=== PATIENT | male | born 1935 | race Caucasian/White ===

== ENCOUNTER 2017-11-21 14:13 | Day surgery (SDC) | payer MEDICARE ==
[2017-11-16 09:07] LABS: BASOPHILS % (AUTO) 0.6 % (0-1); EOSINOPHILS # (AUTO) 0.2 X10'3 (0-0.9); EOSINOPHILS % (AUTO) 2.9 % (0-6); HEMATOCRIT 42.1 % (42.0-52.0); HEMOGLOBIN 14.6 g/dl (14.0-17.9); LYMPHOCYTES # (AUTO) 2.1 X10'3 (1.1-4.8); LYMPHOCYTES % (AUTO) 33.2 % (21-51); MEAN CORPUSCULAR HEMOGLOBIN 29.6 PG (27.0-31.0); MEAN CORPUSCULAR HGB CONC 34.7 % (33.0-36.5); MEAN CORPUSCULAR VOLUME 85.4 FL (78-98); MEAN PLATELET VOLUME 9.7 FL (7.4-10.4); MONOCYTES # (AUTO) 0.4 X10'3 (0-0.9); MONOCYTES % (AUTO) 6.2 % (2-12); NEUTROPHILS # (AUTO) 3.6 X10'3 (1.8-7.7); NEUTROPHILS % (AUTO) 57.1 % (42-75); PLATELET COUNT 182 X10'3 (140-440); RED BLOOD COUNT 4.93 X10'6 (4.70-6.10); RED CELL DISTRIBUTION WIDTH 13.4 % (11.5-14.5); WHITE BLOOD COUNT 6.4 X10'3 (4.5-11.0)
[2017-11-16 09:17] LABS: ALBUMIN 3.6 G/DL (3.4-5.0); ANION GAP 9 (8-16); BLOOD UREA NITROGEN 13 MG/DL (7-18); BUN/CREATININE RATIO 16.3 (5.4-32.0); CALCIUM 8.2 MG/DL (8.5-10.1); CHLORIDE 104 MMOL/L (99-107); GLUCOSE 105 MG/DL (70-104); PARTIAL THROMBOPLASTIN TIME 27 SECONDS (22-32); POTASSIUM 4.1 MMOL/L (3.5-5.1); PROTHROMBIN TIME 10.4 SECONDS (9.0-12.0); SODIUM 139 MMOL/L (135-145); TOTAL CARBON DIOXIDE 25.9 MMOL/L (24-32); eGFR > 90 ML/MIN
[~2017-11-21] VITALS: Ht 182.9 cm; Wt 86.1 kg
[2017-11-21] VITALS (9 sets, daily range): BP systolic 119–153; BP diastolic 64–85
[~2017-11-21 14:13] MED LIST: ACET-3068 PO; LEVO100T PO; SIMV40TA4 PO; VERA240T PO
[2017-11-21] MEDS ORDERED: LORazepam 0.5 MG tablet PO PRN (14:30)
[2017-11-21] MEDS ORDERED: normal saline 1000ml 1,000 ML IV SCH (14:30)
[2017-11-21] MEDS ORDERED: diphenhydrAMINE 25mg capsule PO PRN (14:30)
[2017-11-21] MEDS ORDERED: iohexol 350MG/ML 100ml bottle IV ONE (18:11)
[2017-11-21] MEDS ORDERED: LIDOcaine 1% 30ml preserv. free vial ONE (18:11)
[2017-11-21] MEDS ORDERED: midazolam 2 mg/2 ml injection ONE (18:22)
[2017-11-21] MEDS ORDERED: fentaNYL/PF 50MCG/1 ML 2ML syringe ONE (18:22)
== END 2017-11-21 21:42 | disposition home or self-care (01) ==
LOC: SSTAY O 14:13
PROVIDERS: ATTEND Internal Medicine Interventional Cardiology
DX: I25.110 Atherosclerotic heart disease of native coronary artery with unstable angina pectoris (principal); I10 Essential (primary) hypertension; E78.5 Hyperlipidemia, unspecified; I35.0 Nonrheumatic aortic (valve) stenosis; I34.0 Nonrheumatic mitral (valve) insufficiency; I47.9 Paroxysmal tachycardia, unspecified; I48.91 Unspecified atrial fibrillation; J44.9 Chronic obstructive pulmonary disease, unspecified; E03.9 Hypothyroidism, unspecified; Z72.89 Other problems related to lifestyle; Z85.828 Personal history of other malignant neoplasm of skin; Z87.891 Personal history of nicotine dependence; Z79.82 Long term (current) use of aspirin; Z79.891 Long term (current) use of opiate analgesic; Z96.651 Presence of right artificial knee joint; Z98.890 Other specified postprocedural states; Z79.899 Other long term (current) drug therapy
CPT/HCPCS: 36415; 80048; 85025; 85610; 85730; 93005; 93458; 99152; A6257; C1769; J1644; J2250; J3010; J3490; J7030; Q0163; Q9967; 99153; A4620

== ENCOUNTER 2018-01-03 10:16 | Emergency (ER) | payer MEDICARE, OTHER ==
[~2018-01-03] VITALS: Ht 180.3 cm; Wt 88.0 kg
[~2018-01-03 10:16] MED LIST changes: -VERA240T PO
[2018-01-03 10:39] LABS: BASOPHILS # (AUTO) 0.1 X10'3 (0-0.2); BASOPHILS % (AUTO) 0.8 % (0-1); EOSINOPHILS # (AUTO) 0.2 X10'3 (0-0.9); EOSINOPHILS % (AUTO) 3.3 % (0-6); HEMATOCRIT 43.2 % (42.0-52.0); HEMOGLOBIN 14.9 g/dl (14.0-17.9); LYMPHOCYTES # (AUTO) 2.8 X10'3 (1.1-4.8); LYMPHOCYTES % (AUTO) 38.2 % (21-51); MEAN CORPUSCULAR HEMOGLOBIN 29.7 PG (27.0-31.0); MEAN CORPUSCULAR HGB CONC 34.4 % (33.0-36.5); MEAN CORPUSCULAR VOLUME 86.3 FL (78-98); MEAN PLATELET VOLUME 10.1 FL (7.4-10.4); MONOCYTES # (AUTO) 0.5 X10'3 (0-0.9); MONOCYTES % (AUTO) 6.4 % (2-12); NEUTROPHILS # (AUTO) 3.7 X10'3 (1.8-7.7); NEUTROPHILS % (AUTO) 51.3 % (42-75); PLATELET COUNT 195 X10'3 (140-440); RED BLOOD COUNT 5.01 X10'6 (4.70-6.10); RED CELL DISTRIBUTION WIDTH 13.7 % (11.5-14.5); WHITE BLOOD COUNT 7.2 X10'3 (4.5-11.0)
[2018-01-03 10:49] LABS: PARTIAL THROMBOPLASTIN TIME 26 SECONDS (22-32); PROTHROMBIN TIME 10.3 SECONDS (9.0-12.0)
[2018-01-03 10:54] LABS: ALANINE AMINOTRANSFERASE 28 U/L (12-78); ALBUMIN 3.7 G/DL (3.4-5.0); ALBUMIN/GLOBULIN RATIO 0.9 (1.1-1.5); ALKALINE PHOSPHATASE 63 IU/L (46-116); ANION GAP 8 (8-16); ASPARTATE AMINO TRANSFERASE 18 U/L (10-37); BILIRUBIN,TOTAL 0.4 MG/DL (0.1-1.0); BLOOD UREA NITROGEN 16 MG/DL (7-18); BUN/CREATININE RATIO 17.2 (5.4-32.0); CALCIUM 8.5 MG/DL (8.5-10.1); CHLORIDE 104 MMOL/L (99-107); CREATININE 0.93 MG/DL (0.60-1.10); GLUCOSE 103 MG/DL (70-104); POTASSIUM 4.1 MMOL/L (3.5-5.1); SODIUM 137 MMOL/L (135-145); TOTAL CARBON DIOXIDE 25.3 MMOL/L (24-32); TOTAL PROTEIN 7.8 G/DL (6.4-8.2); eGFR 77 ML/MIN
[2018-01-03 13:24] VITALS: BP 129/88
== END 2018-01-03 13:26 | disposition home or self-care (01) ==
LOC: ER 10:16
DX: R07.89 Other chest pain (principal); I48.91 Unspecified atrial fibrillation; J44.9 Chronic obstructive pulmonary disease, unspecified; G89.29 Other chronic pain; Z79.899 Other long term (current) drug therapy
CPT/HCPCS: 36415; 71045; 80053; 84484; 85025; 85610; 85730; 93005; 99285

== ENCOUNTER 2019-02-25 05:46 | Inpatient (IN) | payer OTHER ==
[2019-02-21 15:37] LABS: BASOPHILS # (AUTO) 0.1 X10'3 (0-0.2); BASOPHILS % (AUTO) 1.1 % (0-1); EOSINOPHILS # (AUTO) 0.2 X10'3 (0-0.9); EOSINOPHILS % (AUTO) 1.8 % (0-6); LYMPHOCYTES % (AUTO) 35.1 % (21-51); MEAN CORPUSCULAR HEMOGLOBIN 29.4 PG (27.0-31.0); MEAN CORPUSCULAR HGB CONC 33.8 g/dL (33.0-36.5); MEAN CORPUSCULAR VOLUME 87.1 FL (78-98); MEAN PLATELET VOLUME 9.3 FL (7.4-10.4); MONOCYTES # (AUTO) 0.6 X10'3 (0-0.9); MONOCYTES % (AUTO) 6.5 % (2-12); NEUTROPHILS # (AUTO) 4.8 X10'3 (1.8-7.7); NEUTROPHILS % (AUTO) 55.5 % (42-75); PRE OP HEMOGLOBIN 15.9 g/dL (14.0-17.9); PRE OP PLATELET COUNT 203 X10'3 (140-440); RED BLOOD COUNT 5.39 X10'6 (4.70-6.10); RED CELL DISTRIBUTION WIDTH 14.8 % (11.5-14.5)
[2019-02-21 15:40] LABS: CLARITY,URINE CLEAR (Clear); COLOR,URINE YELLOW (Yellow); GLUCOSE, URINE NEGATIVE (Neg); KETONES,URINE NEGATIVE (Neg); LEUKOCYTE ESTERASE ,URINE NEGATIVE (Neg); NITRITES, URINE NEGATIVE (Neg); OCCULT BLOOD,URINE NEGATIVE (Neg); PROTEIN,URINE NEGATIVE (Neg); UROBILINOGEN,URINE 0.2 E.U/dL (0.2-1.0)
[2019-02-21 15:45] LABS: UA COLLECTION TYPE CLN CATCH MIDSTREAM
[2019-02-21 16:06] LABS: ALBUMIN 3.9 G/DL (3.4-5.0); ALBUMIN/GLOBULIN RATIO 0.9 (1.1-1.5); ALKALINE PHOSPHATASE 58 IU/L (46-116); BLOOD UREA NITROGEN 17 MG/DL (7-18); BUN/CREATININE RATIO 15.9 (5.4-32.0); CALCIUM 8.5 MG/DL (8.5-10.1); CHLORIDE 107 MMOL/L (99-107); CREATININE 1.07 MG/DL (0.60-1.10); PRE OP ALT 28 U/L (30-65); PRE OP ANION GAP 6 (8-16); PRE OP AST 21 U/L (10-37); PRE OP BILIRUB, TOTAL 0.4 MG/DL (0.0-1.0); PRE OP GLUCOSE 103 MG/DL (70-104); PRE OP SODIUM 142 MMOL/L (135-145); TOTAL PROTEIN 8.1 G/DL (6.4-8.2); eGFR 66 ML/MIN
[~2019-02-25] VITALS: Ht 177.8 cm; Wt 87.0 kg
[2019-02-25] VITALS (18 sets, daily range): BP systolic 99–157; BP diastolic 54–95
[~2019-02-25 05:46] MED LIST changes: -ACET-3068 PO; +AMLO5TAB PO; -LEVO100T PO; +SIMV20TA PO; -SIMV40TA4 PO; +SYN0.088T PO; +cefazolin/dext.iso 2gm/50ml 50 ML IV ONE; +famotidine 20mg tablet PO ONE; +ringers solution, lacted 1,000 ML IV SCH; +vancomycin inj 1,500 MG in normal saline 300ml IV soln IV ONE
[2019-02-25] MEDS ORDERED: LIDOcaine 1% (10mg/ml) 2ml vial ONE (06:17)
[2019-02-25] MEDS ORDERED: tranexamic acid inj. 870 MG in normal saline 100ml IV soln 100 ML IV ONE ×5 (08:55→15:00)
[2019-02-25] MEDS ORDERED: fentaNYL/PF 50MCG/1 ML 2ML syringe ONE ×2 (08:57→11:17)
[2019-02-25] MEDS ORDERED: midazolam 2 mg/2 ml injection ONE (08:57)
[2019-02-25] MEDS ORDERED: sevoflurane 250ml liquid IH ONE (09:11)
[2019-02-25] MEDS ORDERED: ringers solution, lacted 1,000 ML IV SCH (10:39)
[2019-02-25] MEDS ORDERED: ROPIVAcaine 0.2%/PF PAIN PUMP 550 ML IJ SCH (10:39)
[2019-02-25] MEDS ORDERED: HYDROmorphone inj. 0.5 MG/0.5 ML DISP.SYRIN IV PRN ×2 (10:40→12:00)
[2019-02-25] MEDS ORDERED: ondansetron/PF 4mg/2ml inj IV PRN ×2 (10:40→12:00)
[2019-02-25] MEDS ORDERED: morphine 4 MG/ML inj SYRINge IV PRN (10:40)
[2019-02-25] MEDS ORDERED: ROPIVAcaine 0.5% (5mg/ml) 30ml vial ONE ×2 (10:51→11:16)
[2019-02-25] MEDS ORDERED: ondansetron/PF 4mg/2ml inj ONE (11:16)
[2019-02-25] MEDS ORDERED: dexamethasone sod phosphate 4mg/ml inj. ONE (11:16)
[2019-02-25] MEDS ORDERED: ePHEDrine 50MG/ML INJ. ONE (11:16)
[2019-02-25] MEDS ORDERED: propofol inj 20 ML IV ONE (11:16)
[2019-02-25] MEDS ORDERED: LIDOcaine 1%/PF 5ML 10 MG/ML VIAL ONE (11:16)
[2019-02-25] MEDS ORDERED: glycopyrrolate 0.2mg/ml inj ONE (11:37)
--- NOTE | 2019-02-25 11:55 | NUR ---
Received from OR via BED, accompanied by Anesthesiologist DR DURÁN and report given by Anesthesiologist. PT DROWSY, AWAKE, DENIES PAIN, IS ABLE TO WIGGLE FINGERS, HAS SENSATION IN HAND/ARM, RIGHT SHOULDER W/DRSG, ICE PACK, SLING CDI. ISB CATHETER. Addendum: 02/25/19 at 1225 by Ankita Cazares RN Amended: Links added. Addendum: 02/25/19 at 1225 by Ankita Cazares RN CORRECTION: LEFT SHOULDER
[2019-02-25] MEDS ORDERED: HYDROmorphone 1 mg/ml syringe IV PRN (12:00)
[2019-02-25] MEDS ORDERED: oxyCODONE IR 5mg (immed. release) tablet PO PRN ×2 (12:00)
[2019-02-25] MEDS ORDERED: magnesium hydroxide 30ml (MOM) UD suspension PO PRN (12:00)
[2019-02-25] MEDS ORDERED: bisacodyl 10mg suppository rectal RC PRN (12:00)
[2019-02-25] MEDS ORDERED: diphenhydrAMINE 25mg capsule PO PRN ×2 (12:00)
[2019-02-25] MEDS ORDERED: acetaminophen 325mg tablet PO PRN (12:00)
--- NOTE | 2019-02-25 12:55 | NUR ---
Report called to receiving nurse. Transferred via BED, 1 BLACK DUFFLE BAG SENT W/PT TO ROOM 4011B, SIDE RAILS UP X 2, BLL, CALL LIGHT GIVEN, RECEIVING RN NOTIFED OF PTS ARRIVAL. Special Issues communicated to receiving nurse. YES. Addendum: 02/25/19 at 1259 by Ankita Cazares RN Amended: Links added.
[2019-02-25] MEDS: acetaminophen 325mg tablet PO SCH ×2 (15:33→21:00)
[2019-02-25] MEDS: ceFAZolin 1GM/D5W- ADD-VANTAGE 50 ML IV SCH (17:36)
[2019-02-25] MEDS: potassium cl 20mEq in 1/2 NS 1,000 ML IV SCH ×2 (17:37→19:56)
--- NOTE | 2019-02-25 18:21 | NUR ---
Problems reprioritized. Patient report given, questions answered & plan of care reviewed with Torrie CRAIG .
--- NOTE | 2019-02-25 19:14 | NUR ---
REPORT REC'D FROM RAFA BARRIENTOS.
--- NOTE | 2019-02-25 19:14 | NUR ---
Patient in room ORTHO 4011. I have received report from [place] and had the opportunity to ask questions and assume patient care.
[2019-02-25] MEDS ORDERED: vancomycin/NS 1 GM ADD-VANTAGE 250 ML IV SCH (20:00)
[2019-02-25] MEDS ORDERED: sennosides 8.6mg tablet PO SCH (21:00)
[2019-02-26] MEDS: ceFAZolin 1GM/D5W- ADD-VANTAGE 50 ML IV SCH (00:09)
[2019-02-26 02:00] VITALS: BP 145/95
[2019-02-26] MEDS: acetaminophen 325mg tablet PO SCH ×2 (02:00→07:30)
[2019-02-26] MEDS: potassium cl 20mEq in 1/2 NS 1,000 ML IV SCH (03:46)
[2019-02-26 06:00] VITALS: BP 134/78
[2019-02-26 06:05] LABS: BASOPHILS # (AUTO) 0.1 X10'3 (0-0.2); BASOPHILS % (AUTO) 0.5 % (0-1); EOSINOPHILS % (AUTO) 0.1 % (0-6); HEMATOCRIT 36.7 % (42.0-52.0); HEMOGLOBIN 12.9 g/dl (14.0-17.9); LYMPHOCYTES # (AUTO) 1.8 X10'3 (1.1-4.8); LYMPHOCYTES % (AUTO) 16.6 % (21-51); MEAN CORPUSCULAR HEMOGLOBIN 30.2 PG (27.0-31.0); MEAN CORPUSCULAR HGB CONC 35.1 g/dL (33.0-36.5); MEAN CORPUSCULAR VOLUME 86.2 FL (78-98); MEAN PLATELET VOLUME 8.9 FL (7.4-10.4); MONOCYTES % (AUTO) 9.2 % (2-12); NEUTROPHILS # (AUTO) 8.1 X10'3 (1.8-7.7); NEUTROPHILS % (AUTO) 73.6 % (42-75); PLATELET COUNT 178 X10'3 (140-440); RED BLOOD COUNT 4.26 X10'6 (4.70-6.10); RED CELL DISTRIBUTION WIDTH 14.8 % (11.5-14.5)
[2019-02-26 06:22] LABS: ANION GAP 7 (8-16); CHLORIDE 107 MMOL/L (99-107); POTASSIUM 4.3 MMOL/L (3.5-5.1); SODIUM 139 MMOL/L (135-145); TOTAL CARBON DIOXIDE 25.2 MMOL/L (24-32)
[2019-02-26] MEDS ORDERED: ASPI-1 PO (06:30)
--- NOTE | 2019-02-26 06:30 | NUR ---
Patient in room ORTHO 4011. I have received report from Torrie CRAIG and had the opportunity to ask questions and assume patient care.
--- NOTE | 2019-02-26 06:36 | NUR ---
Report given to stephenie Farris.
[2019-02-26] MEDS ORDERED: atorvastatin 10mg tablet PO SCH (08:00)
[2019-02-26] MEDS ORDERED: levoTHYROXINE 88mcg tablet PO SCH (08:00)
[2019-02-26] MEDS ORDERED: amLODIPine 5mg tablet PO SCH (08:00)
--- NOTE | 2019-02-26 08:00 | NUR ---
Patient stable for discharge home today with family. All instructions given to patient and son. All questions answered. ON-Q pump education and pamphlet provided.
[2019-02-26] MEDS ORDERED: aspirin 325mg tablet PO SCH (08:30)
[2019-02-27] MEDS ORDERED: acetaminophen 325mg tablet PO PRN (12:00)
== END 2019-02-26 08:00 | disposition home or self-care (01) | DRG 483 ==
LOC: PAS IN 05:46 → EDSTATUS 09:15 → ORTHO 4S 12:55
PROVIDERS: ADMIT Orthopaedic Surgery; ATTEND Orthopaedic Surgery
PROC: 3E0T3BZ Introduction of Anesthetic Agent into Peripheral Nerves and Plexi, Percutaneous Approach (ICD-10-PCS; 2019-02-25)
PROC: 0RRK00Z Replacement of Left Shoulder Joint with Reverse Ball and Socket Synthetic Substitute, Open Approach (ICD-10-PCS; principal; 2019-02-25 09:11)
DX: M19.012 Primary osteoarthritis, left shoulder (principal); D62 Acute posthemorrhagic anemia; E03.9 Hypothyroidism, unspecified; E78.5 Hyperlipidemia, unspecified; I10 Essential (primary) hypertension; I48.91 Unspecified atrial fibrillation; M75.122 Complete rotator cuff tear or rupture of left shoulder, not specified as traumatic; M81.0 Age-related osteoporosis without current pathological fracture; Z87.891 Personal history of nicotine dependence; Z82.0 Family history of epilepsy and other diseases of the nervous system; Z79.899 Other long term (current) drug therapy
CPT/HCPCS: 36415; 80051; 80053; 81003; 82948; 84443; 85025; 87081; 97116; 97161; 97530; A4215; A4565; A4618; A7000; C1776; G0378; J0690; J1100; J1170; J2001; J2250; J2405; J2704; J2795; J3010; J3370; J3480; J3490; J7120; Q0163

== ENCOUNTER 2022-01-26 08:11 | Emergency (ER) | payer OTHER ==
[~2022-01-26] VITALS: Ht 177.8 cm; Wt 89.0 kg
[~2022-01-26 08:11] MED LIST changes: +ASPI-1 PO; +SIMV-342 PO; -SIMV20TA PO; -cefazolin/dext.iso 2gm/50ml 50 ML IV ONE; -famotidine 20mg tablet PO ONE; -ringers solution, lacted 1,000 ML IV SCH; -vancomycin inj 1,500 MG in normal saline 300ml IV soln IV ONE
[2022-01-26] MEDS ORDERED: dexamethasone sod phosphate 10mg/ml inj IV STA (08:34)
[2022-01-26] MEDS ORDERED: meclizine 12.5mg tablet PO ONE (08:35)
[2022-01-26] MEDS ORDERED: normal saline 1000ML IV soln IVB ONE (08:35)
--- NOTE | 2022-01-26 09:12 | NUR ---
PATTIEN TO CT SCAN
[2022-01-26 09:14] LABS: BASOPHILS % (AUTO) 0.6 % (0-1); EOSINOPHILS # (AUTO) 0.2 X10'3 (0-0.9); EOSINOPHILS % (AUTO) 2.7 % (0-6); HEMATOCRIT 42.9 % (42.0-52.0); HEMOGLOBIN 14.4 g/dl (14.0-17.9); LYMPHOCYTES # (AUTO) 2.3 X10'3 (1.1-4.8); MEAN CORPUSCULAR HEMOGLOBIN 28.9 PG (27.0-31.0); MEAN CORPUSCULAR HGB CONC 33.5 g/dL (33.0-36.5); MEAN CORPUSCULAR VOLUME 86.4 FL (78-98); MEAN PLATELET VOLUME 9.5 FL (7.4-10.4); MONOCYTES # (AUTO) 0.4 X10'3 (0-0.9); MONOCYTES % (AUTO) 6.4 % (2-12); NEUTROPHILS # (AUTO) 3.5 X10'3 (1.8-7.7); NEUTROPHILS % (AUTO) 54.3 % (42-75); PLATELET COUNT 187 X10'3 (140-440); RED BLOOD COUNT 4.97 X10'6 (4.70-6.10); WHITE BLOOD COUNT 6.5 X10'3 (4.5-11.0)
--- NOTE | 2022-01-26 09:19 | NUR ---
ITALO DAVIS [place] -[phone] RACHEL DAVIS (SON)- [phone]
[2022-01-26 09:39] LABS: ALANINE AMINOTRANSFERASE 16 U/L (12-78); ALBUMIN 3.5 G/DL (3.4-5.0); ALBUMIN/GLOBULIN RATIO 0.9 (1.1-1.5); ALKALINE PHOSPHATASE 56 IU/L (46-116); ANION GAP 9 (8-16); ASPARTATE AMINO TRANSFERASE 18 U/L (10-37); BILIRUBIN,TOTAL 0.5 MG/DL (0.1-1.0); BLOOD UREA NITROGEN 17 MG/DL (7-18); BUN/CREATININE RATIO 20.5 (5.4-32.0); CHLORIDE 105 MMOL/L (99-107); CREATININE 0.83 MG/DL (0.60-1.10); GLUCOSE 122 MG/DL (70-104); POTASSIUM 3.9 MMOL/L (3.5-5.1); SODIUM 141 MMOL/L (135-145); TOTAL CARBON DIOXIDE 26.9 MMOL/L (24-32); TOTAL PROTEIN 7.6 G/DL (6.4-8.2); eGFR 87 ML/MIN
[2022-01-26] MEDS ORDERED: MECL-159 PO (09:39)
[2022-01-26] MEDS ORDERED: ONDA4TAB12 PO (09:39)
--- NOTE | 2022-01-26 09:59 | NUR ---
PASSED GAIT TEST. NO DIZZINESS/NAUSEA OR ANY CONCERN EXPRESSED. VITALS REMAIN STABLE. WILL D/C ORDERED
[2022-01-26 10:06] VITALS: BP 127/69
== END 2022-01-26 10:09 | disposition home or self-care (01) ==
LOC: ER 08:12
DX: R42 Dizziness and giddiness (principal); R09.81 Nasal congestion; J42 Unspecified chronic bronchitis; G89.29 Other chronic pain
CPT/HCPCS: 36415; 70450; 80053; 82948; 84484; 85025; 93005; 96374; 99285; J1100; J7030; J8597

== ENCOUNTER 2022-05-08 21:36 | Emergency (ER) | payer OTHER ==
[~2022-05-08] VITALS: Ht 177.8 cm; Wt 85.9 kg
[~2022-05-08 21:36] MED LIST changes: +MECL-159 PO; +ONDA4TAB12 PO
[2022-05-08] MEDS ORDERED: LIDOcaine 1% w/EPI 1:100,000 30ml vial (MDV) IJ ONE (22:50)
[2022-05-08] MEDS ORDERED: TETanus/Pertussis (Acell)/Diphther VAC/PF (Tdap-Adult) 0.5ml syringe IMVAC ONE (22:50)
[2022-05-08 23:52] VITALS: BP 129/71
[2022-05-09] MEDS ORDERED: CEPH-585 PO (00:13)
== END 2022-05-09 00:35 | disposition home or self-care (01) ==
LOC: ER 21:39
DX: S61.432A Puncture wound without foreign body of left hand, initial encounter (principal); E78.00 Pure hypercholesterolemia, unspecified; I10 Essential (primary) hypertension; J44.9 Chronic obstructive pulmonary disease, unspecified; G89.29 Other chronic pain; Z79.899 Other long term (current) drug therapy; W34.09XA Accidental discharge from other specified firearms, initial encounter; Y93.89 Activity, other specified; Y92.89 Other specified places as the place of occurrence of the external cause; Y99.8 Other external cause status
CPT/HCPCS: 12001; 73120; 90471; 90715; 99283; A6223; J7030; A6449

== ENCOUNTER 2023-08-07 11:08 | Day surgery (SDC) | payer MEDICARE ==
[2023-08-03 09:30] LABS: BASOPHILS # (AUTO) 0.1 X10'3 (0-0.2); BASOPHILS % (AUTO) 0.8 % (0-1); EOSINOPHILS # (AUTO) 0.2 X10'3 (0-0.9); EOSINOPHILS % (AUTO) 2.2 % (0-6); LYMPHOCYTES # (AUTO) 3.4 X10'3 (1.1-4.8); LYMPHOCYTES % (AUTO) 39.5 % (21-51); MEAN CORPUSCULAR HEMOGLOBIN 29.5 PG (27.0-31.0); MEAN CORPUSCULAR HGB CONC 34.1 g/dL (33.0-36.5); MEAN CORPUSCULAR VOLUME 86.6 FL (78-98); MEAN PLATELET VOLUME 9.3 FL (7.4-10.4); MONOCYTES # (AUTO) 0.6 X10'3 (0-0.9); MONOCYTES % (AUTO) 6.9 % (2-12); NEUTROPHILS # (AUTO) 4.4 X10'3 (1.8-7.7); NEUTROPHILS % (AUTO) 50.6 % (42-75); PLATELET COUNT 177 X10'3 (140-440); RED BLOOD COUNT 5.08 X10'6 (4.70-6.10); RED CELL DISTRIBUTION WIDTH 14.2 % (11.5-14.5); WHITE BLOOD COUNT 8.7 X10'3 (4.5-11.0)
[2023-08-03 09:48] LABS: APTT 30 SECONDS (22-32); INR 1.1 INR; PROTHROMBIN TIME 11.3 SECONDS (9.0-12.0)
[2023-08-03 09:51] LABS: ALBUMIN 3.7 G/DL (3.4-5.0); ANION GAP 7 (8-16); BLOOD UREA NITROGEN 13 MG/DL (7-18); CALCIUM 8.5 MG/DL (8.5-10.1); CHLORIDE 104 MMOL/L (99-107); CHOL/HDL RATIO 2.5 (0.00-4.99); CHOLESTEROL 118 MG/DL (0-200); CREATININE 0.81 MG/DL (0.60-1.10); GLUCOSE 99 MG/DL (70-104); HDL CHOLESTEROL 48 MG/DL (35-60); LDL CHOLESTEROL 61 MG/DL (50-100); POTASSIUM 4.1 MMOL/L (3.5-5.1); SODIUM 139 MMOL/L (135-145); TOTAL CARBON DIOXIDE 27.9 MMOL/L (24-32); TRIGLYCERIDES 48 MG/DL (20-135); eGFR 90 ML/MIN
[~2023-08-07] VITALS: Ht 175.3 cm; Wt 88.3 kg
[2023-08-07] VITALS (8 sets, daily range): BP systolic 109–143; BP diastolic 65–95; PULSE 65–78; RESP 14–16; TEMP 98; O2SAT 93–95
[~2023-08-07 11:08] MED LIST changes: +APIX5TAB3 PO; -ASPI-1 PO; +ASPI-529; +DIPH25TA25 PO; +FAMO20TA8 PO; +LIDOcaine 1% (10mg/ml) 2ml vial ONE; -MECL-159 PO; +MECL-302 PO; +fentaNYL/PF 50MCG/1 ML 2ML syringe ONE; +heparin 1,000unit/ml 10ml vial 10 ML ONE; +iohexol 350MG/ML 100ml bottle IV ONE; +midazolam 1 mg/ML 2ml injection ONE; +nitroGLYCERIN 500mcg/5mL D5W 5 ML IV ONE; +verapamil 2.5 mg/ml inj IV ONE
[2023-08-07] MEDS ORDERED: LORazepam 0.5 MG tablet PO PRN (11:35)
[2023-08-07] MEDS ORDERED: normal saline 1,000 ML IV SCH (11:35)
[2023-08-07] MEDS: diphenhydrAMINE 25mg capsule PO PRN (12:28)
[2023-08-07] MEDS ORDERED: LIDOcaine 1% 30ml preserv. free vial ONE (13:32)
[2023-08-07] MEDS ORDERED: HYDROcodone/acetaminophen 10/325mg tab PO PRN (14:25)
[2023-08-07] MEDS ORDERED: HYDROcodone/acetaminophen 5mg/325mg tablet PO PRN (14:25)
[2023-08-08 06:42] LABS: ISTAT HGB MIX 12.9 g/dl (14.0-17.9); ISTAT HGB MIX 13.6 g/dl (14.0-17.9); ISTAT Hct MIX 38 %PCV (42-52); ISTAT Hct MIX 40 %PCV (42-52); ISTAT O2 SATURATION MIX VENOUS 58 % (60-80); ISTAT O2 SATURATION MIX VENOUS 92 % (60-80); ISTAT SOURCE BLNK
== END 2023-08-07 16:40 | disposition home or self-care (01) ==
LOC: SSTAY O 11:08
PROVIDERS: ATTEND Student in an Organized Health Care Education/Training Program
DX: I35.0 Nonrheumatic aortic (valve) stenosis (principal); I25.10 Atherosclerotic heart disease of native coronary artery without angina pectoris; I10 Essential (primary) hypertension; I48.0 Paroxysmal atrial fibrillation; I44.1 Atrioventricular block, second degree; E78.5 Hyperlipidemia, unspecified; I65.29 Occlusion and stenosis of unspecified carotid artery; I49.5 Sick sinus syndrome; I71.40 Abdominal aortic aneurysm, without rupture, unspecified; Z87.891 Personal history of nicotine dependence; Z86.73 Personal history of transient ischemic attack (TIA), and cerebral infarction without residual deficits; Z95.0 Presence of cardiac pacemaker; Z79.899 Other long term (current) drug therapy; Z79.01 Long term (current) use of anticoagulants
CPT/HCPCS: 36415; 80048; 80061; 82803; 85014; 85025; 85610; 85730; 93005; 93456; 99152; A6258; J1644; J2250; J3010; J3490; J7030; Q0163; Q9967; 99153; A6402; A6449; C1751; C1769; C1894

== ENCOUNTER 2023-09-17 11:00 | Outpatient (CLI) | payer MEDICARE, OTHER ==
[~2023-09-17 11:00] MED LIST changes: -ASPI-529; -DIPH25TA25 PO; -FAMO20TA8 PO; -LIDOcaine 1% (10mg/ml) 2ml vial ONE; -MECL-302 PO; -ONDA4TAB12 PO; -fentaNYL/PF 50MCG/1 ML 2ML syringe ONE; -heparin 1,000unit/ml 10ml vial 10 ML ONE; -iohexol 350MG/ML 100ml bottle IV ONE; -midazolam 1 mg/ML 2ml injection ONE; -nitroGLYCERIN 500mcg/5mL D5W 5 ML IV ONE; -verapamil 2.5 mg/ml inj IV ONE
[2023-09-17 11:42] LABS: BASOPHILS # (AUTO) 0.1 X10'3 (0-0.2); BASOPHILS % (AUTO) 0.9 % (0-1); EOSINOPHILS # (AUTO) 0.2 X10'3 (0-0.9); EOSINOPHILS % (AUTO) 2.3 % (0-6); HEMATOCRIT 43.5 % (42.0-52.0); HEMOGLOBIN 14.9 g/dl (14.0-17.9); LYMPHOCYTES # (AUTO) 2.8 X10'3 (1.1-4.8); MEAN CORPUSCULAR HEMOGLOBIN 29.6 PG (27.0-31.0); MEAN CORPUSCULAR HGB CONC 34.2 g/dL (33.0-36.5); MEAN CORPUSCULAR VOLUME 86.5 FL (78-98); MEAN PLATELET VOLUME 9.2 FL (7.4-10.4); MONOCYTES # (AUTO) 0.7 X10'3 (0-0.9); MONOCYTES % (AUTO) 8.2 % (2-12); NEUTROPHILS % (AUTO) 56.6 % (42-75); PLATELET COUNT 210 X10'3 (140-440); RED BLOOD COUNT 5.02 X10'6 (4.70-6.10); RED CELL DISTRIBUTION WIDTH 14.1 % (11.5-14.5); WHITE BLOOD COUNT 8.8 X10'3 (4.5-11.0)
[2023-09-17 11:54] LABS: ALANINE AMINOTRANSFERASE 16 U/L (12-78); ALBUMIN 3.6 G/DL (3.4-5.0); ALBUMIN/GLOBULIN RATIO 0.8 (1.1-1.5); ALKALINE PHOSPHATASE 57 IU/L (46-116); ANION GAP 11 (8-16); ASPARTATE AMINO TRANSFERASE 18 U/L (10-37); BILIRUBIN,TOTAL 0.4 MG/DL (0.1-1.0); BLOOD UREA NITROGEN 15 MG/DL (7-18); BUN/CREATININE RATIO 15.5 (10.0-20.0); CALCIUM 8.6 MG/DL (8.5-10.1); CHLORIDE 104 MMOL/L (99-107); CREATININE 0.97 MG/DL (0.60-1.10); GLUCOSE 96 MG/DL (70-104); SODIUM 141 MMOL/L (135-145); TOTAL CARBON DIOXIDE 26.5 MMOL/L (24-32); eGFR 73 ML/MIN
[2023-09-17 11:58] LABS: APTT 30 SECONDS (22-32); PROTHROMBIN TIME 10.9 SECONDS (9.0-12.0)
[2023-09-17] MEDS ORDERED: IODIXANOL 320 MG/ML INFUS..BTL 100ML IV ONE (12:00)
== END 2023-09-17 23:59 | disposition home or self-care (01) ==
LOC: RAD 11:00
PROVIDERS: ATTEND Internal Medicine Cardiovascular Disease
DX: I34.81 Nonrheumatic mitral (valve) annulus calcification (principal); I35.0 Nonrheumatic aortic (valve) stenosis; R06.02 Shortness of breath; I65.29 Occlusion and stenosis of unspecified carotid artery; M41.85 Other forms of scoliosis, thoracolumbar region; M47.815 Spondylosis without myelopathy or radiculopathy, thoracolumbar region; K57.30 Diverticulosis of large intestine without perforation or abscess without bleeding; I71.21 Aneurysm of the ascending aorta, without rupture; Z95.0 Presence of cardiac pacemaker; Z96.612 Presence of left artificial shoulder joint; I51.7 Cardiomegaly
CPT/HCPCS: 36415; 71046; 71275; 74174; 75572; 80053; 85025; 85610; 85730; J3490; Q9967

== ENCOUNTER 2023-11-22 22:08 | Emergency (ER) | payer MEDICARE, OTHER ==
[~2023-11-22] VITALS: Ht 180.3 cm; Wt 86.4 kg
[2023-11-22 22:26] VITALS: TEMP 98
[2023-11-22 22:55] LABS: BASOPHILS # (AUTO) 0.1 X10'3 (0-0.2); BASOPHILS % (AUTO) 0.7 % (0-1); EOSINOPHILS # (AUTO) 0.2 X10'3 (0-0.9); EOSINOPHILS % (AUTO) 2.3 % (0-6); HEMATOCRIT 43.9 % (42.0-52.0); HEMOGLOBIN 14.6 g/dl (14.0-17.9); LYMPHOCYTES # (AUTO) 2.9 X10'3 (1.1-4.8); MEAN CORPUSCULAR HGB CONC 33.3 g/dL (33.0-36.5); MEAN CORPUSCULAR VOLUME 87.2 FL (78-98); MEAN PLATELET VOLUME 9.6 FL (7.4-10.4); MONOCYTES # (AUTO) 0.6 X10'3 (0-0.9); MONOCYTES % (AUTO) 7.8 % (2-12); NEUTROPHILS # (AUTO) 3.9 X10'3 (1.8-7.7); NEUTROPHILS % (AUTO) 51.2 % (42-75); PLATELET COUNT 194 X10'3 (140-440); RED BLOOD COUNT 5.03 X10'6 (4.70-6.10); RED CELL DISTRIBUTION WIDTH 13.8 % (11.5-14.5); WHITE BLOOD COUNT 7.6 X10'3 (4.5-11.0)
[2023-11-22 23:06] LABS: APTT 28 SECONDS (22-32); PROTHROMBIN TIME 10.9 SECONDS (9.0-12.0)
[2023-11-22 23:17] LABS: ALANINE AMINOTRANSFERASE 21 U/L (12-78); ALBUMIN 3.6 G/DL (3.4-5.0); ALBUMIN/GLOBULIN RATIO 0.8 (1.1-1.5); ALKALINE PHOSPHATASE 61 IU/L (46-116); ANION GAP 4 (8-16); ASPARTATE AMINO TRANSFERASE 18 U/L (10-37); BILIRUBIN,TOTAL 0.4 MG/DL (0.1-1.0); BLOOD UREA NITROGEN 15 MG/DL (7-18); BUN/CREATININE RATIO 15.8 (10.0-20.0); CALCIUM 8.6 MG/DL (8.5-10.1); CHLORIDE 104 MMOL/L (99-107); CREATININE 0.95 MG/DL (0.60-1.10); GLUCOSE 110 MG/DL (70-104); POTASSIUM 4.1 MMOL/L (3.5-5.1); SODIUM 136 MMOL/L (135-145); TOTAL CARBON DIOXIDE 27.7 MMOL/L (24-32); TOTAL PROTEIN 7.9 G/DL (6.4-8.2); eCRCL 56 ML/MIN; eGFR 75 ML/MIN
[2023-11-23 02:00] VITALS: BP 134/78; PULSE 65; RESP 18; O2SAT 95
[2023-11-27] MEDS ORDERED: ACET-3068 PO (11:05)
[2023-11-27] MEDS ORDERED: ONDA4TAB12 PO (11:05)
[2023-11-27] MEDS ORDERED: MECL-302 PO (11:05)
[2023-11-27] MEDS ORDERED: FAMO-129 PO (11:05)
== END 2023-11-23 02:18 | disposition home or self-care (01) ==
LOC: ER 22:09
DX: K06.8 Other specified disorders of gingiva and edentulous alveolar ridge (principal); R42 Dizziness and giddiness; E78.00 Pure hypercholesterolemia, unspecified; I10 Essential (primary) hypertension; J44.9 Chronic obstructive pulmonary disease, unspecified; R79.1 Abnormal coagulation profile; Z79.899 Other long term (current) drug therapy
CPT/HCPCS: 36415; 80053; 83605; 85025; 85610; 85730; 86885; 86900; 86901; 87040; 93005; 99284